=== PATIENT | male | born 1950 | race Caucasian/White ===

== ENCOUNTER 2016-12-15 08:07 | Emergency (ER) | payer MEDICARE, MEDICAID | END 2016-12-15 08:35 | disposition home or self-care (01) | LOC: NAV ERS 08:07 | DX: T83.031A Leakage of indwelling urethral catheter, initial encounter (principal); I10 Essential (primary) hypertension | CPT/HCPCS: 99283 ==

== ENCOUNTER 2017-02-01 09:09 | Emergency (ER) | payer MEDICARE, MEDICAID | END 2017-02-01 11:21 | disposition left against medical advice (07) | LOC: NAV ERS 09:09 | DX: Z46.6 Encounter for fitting and adjustment of urinary device (principal); I10 Essential (primary) hypertension; I48.91 Unspecified atrial fibrillation; Z79.899 Other long term (current) drug therapy | CPT/HCPCS: 99283 ==

== ENCOUNTER 2017-02-28 10:36 | Emergency (ER) | payer MEDICARE, MEDICAID ==
[2017-02-28 11:58] LABS: #Monocytes 0.8 thou/uL (0.11-0.59); #Neutrophils 11.1 thou/uL (1.40-6.50); %Basophils 0.4 % (0.0-1.0); %Monocytes 5.8 % (0.0-10.0); %Neutrophils 85.8 % (42.0-75.0); Mean Corpuscular HGB CONC 32.8 g/dL (32.0-36.0); Mean Corpuscular Hemoglobin 28.3 pg (27.0-31.0); Mean Corpuscular Volume 86.1 fl (80.0-94.0); Mean Platelet Volume 7.6 fL (7.4-10.4); Platelet Count 222 thou/uL (130-400); RBC Distribution Width 14.1 % (11.5-14.5); Red Blood Cell (RBC) Count 5.66 mill/uL (4.70-6.10); White Blood Cell (WBC) Count 12.9 thou/uL (4.8-10.8)
[2017-02-28] MEDS ORDERED: Acetaminophen/Codeine 30-300mg Tablet ONE (12:05)
[2017-02-28] MEDS ORDERED: Sodium Chloride 0.9% 1,000 ML ONE (12:05)
[2017-02-28 12:11] LABS: ALT (SGPT) 20 U/L (8-55); AST (SGOT) 24 U/L (5-34); Albumin 4.7 g/dL (3.4-4.8); Alkaline Phosphatase 98 U/L (40-150); Anion Gap 19 mmol/L (10-20); BUN (Urea Nitrogen) 23 mg/dL (8.4-25.7); Bilirubin, Total 0.5 mg/dL (0.2-1.2); Calc. Creatinine Clearance 0 mL/min (70-130); Calcium 11.3 mg/dL (7.8-10.44); Carbon Dioxide 18 mmol/L (23-31); Chloride 110 mmol/L (98-107); Estimated GFR-MDRD 34; Globulin 4.2 g/dL (2.4-3.5); Glucose 139 mg/dL (80-115); Potassium 4.3 mmol/L (3.5-5.1); Protein, Total 8.9 g/dL (5.8-8.1); Sodium 143 mmol/L (136-145)
[2017-02-28 12:13] LABS: CKMB 3.4 ng/mL (0-6.6); Troponin I 0.084 ng/mL (< 0.028)
[2017-02-28] MEDS ORDERED: Labetalol HCl 100 MG/20 ML VIAL ONE (12:51)
[2017-02-28 13:06] LABS: Bilirubin Negative (Negative); Blood, Urine Negative (Negative); Clarity Cloudy (Clear); Glucose, Urine (Dipstick) Negative (Negative); Leukocyte Small (Negative); Nitrite Negative (Negative); Protein, Urine (Dipstick) > or equal to 300 mg/dL (Neg-Trace); pH, Urine Greater/Equal 9.0 (5.0-9.0)
[2017-02-28 13:09] LABS: Bacteria/HPF 1+ HPF (None Seen); RBC/HPF None Seen HPF (0-3); Squamous Epithelial 0-3 HPF (0-3)
[2017-02-28 13:10] LABS: Crystals/HPF 1+ AMORPH URATES HPF (Negative); Other Microscopic Description 2+ TRIPLE PHOS CRYST
--- NOTE | 2017-02-28 13:57 | RAD ---
CHEST 1 VIEW: HISTORY: Tachycardic. COMPARISON: Chest 1 view 10/23/16. FINDINGS: Heart size is mildly prominent, although may be sequelae of technique. No focal airspace consolidat ion or pneumothorax. There appears to be some pleural thickening along the left lateral hemithorax. There are some multiple left-sided rib fractures, poorly seen. IMPRESSION: Limited due to technique, although no acute intrathoracic abnormality is appreciated. POS: [facility]
[2017-02-28] MEDS ORDERED: Nitroglycerin 2% Ointment 1 INCH/1 GM Packet ONE (14:00)
[2017-02-28] MEDS ORDERED: cefTRIAXone\\ROCEPHIN 1 GM VIAL ONE (14:00)
[2017-02-28] MEDS ORDERED: Sodium Chloride 0.9% 0 ML ONE (14:01)
[2017-02-28] MEDS ORDERED: Sodium Chloride 0.9% 100 ML ONE (14:02)
== END 2017-02-28 14:30 | disposition short-term general hospital (02) ==
LOC: NAV ERS 10:36
DX: N48.1 Balanitis (principal); N39.0 Urinary tract infection, site not specified; I13.0 Hypertensive heart and chronic kidney disease with heart failure and stage 1 through stage 4 chronic kidney disease, or unspecified chronic kidney disease; N18.9 Chronic kidney disease, unspecified; I50.9 Heart failure, unspecified; I48.91 Unspecified atrial fibrillation; Z85.46 Personal history of malignant neoplasm of prostate; Z79.899 Other long term (current) drug therapy
CPT/HCPCS: 51702; 71010; 80053; 81003; 81015; 82553; 83605; 83880; 84484; 85025; 87040; 87086; 87149; 93005; 94760; 96361; 96365; 96375; J0696; J2270; J7050

== ENCOUNTER 2017-03-29 19:53 | Emergency (ER) | payer MEDICARE, MEDICAID | END 2017-03-29 20:26 | disposition home or self-care (01) | LOC: NAV ERS 19:53 | DX: T83.038A Leakage of other urinary catheter, initial encounter (principal); I10 Essential (primary) hypertension; I49.9 Cardiac arrhythmia, unspecified; I48.91 Unspecified atrial fibrillation; Z79.899 Other long term (current) drug therapy | CPT/HCPCS: 99283 ==

== ENCOUNTER 2017-04-11 10:02 | Emergency (ER) | payer MEDICARE, MEDICAID | END 2017-04-11 10:42 | disposition home or self-care (01) | LOC: NAV ERS 10:02 | DX: T83.9XXA Unspecified complication of genitourinary prosthetic device, implant and graft, initial encounter (principal); I10 Essential (primary) hypertension; I48.91 Unspecified atrial fibrillation; C61 Malignant neoplasm of prostate; Z79.899 Other long term (current) drug therapy | CPT/HCPCS: 99283 ==

== ENCOUNTER 2017-04-29 15:24 | Emergency (ER) | payer MEDICARE, MEDICAID | END 2017-04-29 16:15 | disposition home or self-care (01) | LOC: NAV ERS 15:24 | DX: Z46.6 Encounter for fitting and adjustment of urinary device (principal) | CPT/HCPCS: 99283 ==

== ENCOUNTER 2017-05-24 08:25 | Emergency (ER) | payer MEDICARE, MEDICAID | END 2017-05-24 09:29 | disposition home or self-care (01) | LOC: NAV ERS 08:25 | DX: T83.038A Leakage of other urinary catheter, initial encounter (principal); I10 Essential (primary) hypertension; Z79.899 Other long term (current) drug therapy | CPT/HCPCS: 99283 ==

== ENCOUNTER 2017-06-05 12:14 | Emergency (ER) | payer MEDICAID, MEDICARE | END 2017-06-05 14:54 | disposition home or self-care (01) | LOC: NAV ERS 12:14 | DX: T83.098A Other mechanical complication of other urinary catheter, initial encounter (principal); I10 Essential (primary) hypertension | CPT/HCPCS: 99283 ==

== ENCOUNTER 2017-07-05 11:53 | Emergency (ER) | payer MEDICARE, MEDICAID | END 2017-07-05 13:12 | disposition home or self-care (01) | LOC: NAV ERS 11:53 | DX: T83.091A Other mechanical complication of indwelling urethral catheter, initial encounter (principal); I10 Essential (primary) hypertension; N40.0 Benign prostatic hyperplasia without lower urinary tract symptoms; Z79.899 Other long term (current) drug therapy | CPT/HCPCS: 51702 ==

== ENCOUNTER 2017-07-26 14:06 | Emergency (ER) | payer MEDICAID, MEDICARE ==
[2017-07-26] MEDS ORDERED: Amlodipine 10 MG TAB ONE (15:25)
[2017-07-26] MEDS ORDERED: cloNIDine 0.1 MG TAB ONE (16:44)
== END 2017-07-26 17:44 | disposition home or self-care (01) ==
LOC: NAV ERS 14:06
DX: T83.018A Breakdown (mechanical) of other urinary catheter, initial encounter (principal); I10 Essential (primary) hypertension; N40.0 Benign prostatic hyperplasia without lower urinary tract symptoms; Z79.899 Other long term (current) drug therapy
CPT/HCPCS: 99283

== ENCOUNTER 2017-10-08 15:56 | Emergency (ER) | payer MEDICARE ==
[2017-10-08] MEDS ORDERED: cloNIDine 0.1 MG TAB ONE ×2 (17:33→18:16)
[2017-10-08] MEDS ORDERED: Amlodipine 10 MG TAB ONE (17:33)
== END 2017-10-08 19:00 | disposition home or self-care (01) ==
LOC: NAV ERS 15:56
DX: I10 Essential (primary) hypertension (principal); Z79.899 Other long term (current) drug therapy
CPT/HCPCS: 51703

== ENCOUNTER 2017-11-26 09:26 | Emergency (ER) | payer MEDICARE | END 2017-11-26 10:01 | disposition home or self-care (01) | LOC: NAV ERS 09:26 | DX: T83.098A Other mechanical complication of other urinary catheter, initial encounter (principal); I10 Essential (primary) hypertension | CPT/HCPCS: 99283 ==

== ENCOUNTER 2017-12-06 15:23 | Emergency (ER) | payer MEDICARE ==
[2017-12-06] MEDS ORDERED: cloNIDine 0.1 MG TAB ONE (16:01)
[2017-12-06] MEDS ORDERED: Amlodipine 10 MG TAB ONE (16:01)
== END 2017-12-06 16:20 | disposition home or self-care (01) ==
LOC: NAV ERS 15:23
DX: R33.9 Retention of urine, unspecified (principal); I10 Essential (primary) hypertension; N40.0 Benign prostatic hyperplasia without lower urinary tract symptoms; Z85.038 Personal history of other malignant neoplasm of large intestine
CPT/HCPCS: 99283

== ENCOUNTER 2017-12-26 07:21 | Emergency (ER) | payer MEDICARE ==
[2017-12-26] MEDS ORDERED: cloNIDine 0.2 MG TAB ONE (07:41)
== END 2017-12-26 08:34 | disposition home or self-care (01) ==
LOC: NAV ERS 07:21
DX: R33.9 Retention of urine, unspecified (principal); I10 Essential (primary) hypertension; N40.0 Benign prostatic hyperplasia without lower urinary tract symptoms; Z85.038 Personal history of other malignant neoplasm of large intestine; Z79.899 Other long term (current) drug therapy
CPT/HCPCS: 99283

== ENCOUNTER 2018-01-31 15:31 | Emergency (ER) | payer MEDICARE ==
[2018-01-31 16:25] LABS: #Lymphocytes 0.4 thou/uL (1.20-3.40); #Monocytes 0.5 thou/uL (0.11-0.59); #Neutrophils 8.9 thou/uL (1.40-6.50); %Basophils 0.5 % (0.0-1.0); %Eosinophils 0.1 % (0.0-10.0); %Lymphocytes 3.6 % (21.0-51.0); %Neutrophils 90.8 % (42.0-75.0); Hemoglobin 14.8 g/dL (14.0-18.0); Mean Corpuscular HGB CONC 31.3 g/dL (32.0-36.0); Mean Platelet Volume 8.9 fL (7.4-10.4); Platelet Count 177 thou/uL (130-400); RBC Distribution Width 14.6 % (11.5-14.5); White Blood Cell (WBC) Count 9.8 thou/uL (4.8-10.8)
[2018-01-31 16:38] LABS: Anion Gap 14 mmol/L (10-20); BUN (Urea Nitrogen) 16 mg/dL (8.4-25.7); Calc. Creatinine Clearance 0 mL/min (70-130); Calcium 9.8 mg/dL (7.8-10.44); Carbon Dioxide 18 mmol/L (23-31); Chloride 107 mmol/L (98-107); Estimated GFR-MDRD 43; Glucose 120 mg/dL (80-115); Potassium 3.2 mmol/L (3.5-5.1); Sodium 136 mmol/L (136-145)
[2018-01-31] MEDS ORDERED: Sodium Chloride 0.9% 0 ML ONE (16:54)
[2018-01-31 17:05] LABS: Bilirubin Negative (Negative); Blood, Urine Large (Negative); Glucose, Urine (Dipstick) Negative (Negative); Leukocyte Moderate (Negative); Nitrite Positive (Negative); Protein, Urine (Dipstick) > or equal to 300 mg/dL (Neg-Trace); Specific Gravity, Urine 1.025 (1.005-1.030)
[2018-01-31 17:07] LABS: Clarity Cloudy (Clear)
[2018-01-31 17:13] LABS: Bacteria/HPF 4+ HPF (None Seen); RBC/HPF GREATER THAN 50-TNTC HPF (0-3); Squamous Epithelial 0-3 HPF (0-3)
[2018-01-31] MEDS ORDERED: Lidocaine 1% 20 ML MDV ONE (17:33)
[2018-01-31] MEDS ORDERED: cefTRIAXone\\ROCEPHIN 1 GM VIAL ONE (17:33)
== END 2018-01-31 19:00 | disposition home or self-care (01) ==
LOC: NAV ERS 15:31
DX: S37.33XA Laceration of urethra, initial encounter (principal); B37.42 Candidal balanitis; N39.0 Urinary tract infection, site not specified; I10 Essential (primary) hypertension; Z79.899 Other long term (current) drug therapy; X58.XXXA Exposure to other specified factors, initial encounter
CPT/HCPCS: 51702; 80048; 81003; 81015; 85025; 87070; 87077; 87086; 87186; 87205; 96372; J0696; J2001; J7050

== ENCOUNTER 2018-03-11 10:40 | Emergency (ER) | payer MEDICARE | END 2018-03-11 11:36 | disposition home or self-care (01) | LOC: NAV ERS 10:40 | DX: T83.038A Leakage of other urinary catheter, initial encounter (principal); I10 Essential (primary) hypertension; Z79.899 Other long term (current) drug therapy | CPT/HCPCS: 99283 ==

== ENCOUNTER 2018-04-10 10:44 | Emergency (ER) | payer MEDICARE ==
[2018-04-10] MEDS ORDERED: cloNIDine 0.2 MG TAB ONE (11:59)
[2018-04-10 13:50] LABS: AST (SGOT) 18 U/L (5-34); Albumin 4.1 g/dL (3.4-4.8); Alkaline Phosphatase 101 U/L (40-150); Anion Gap 16 mmol/L (10-20); BUN (Urea Nitrogen) 17 mg/dL (8.4-25.7); Bilirubin, Total 0.8 mg/dL (0.2-1.2); CKMB 3.3 ng/mL (0-6.6); Calc. Creatinine Clearance 0 mL/min (70-130); Carbon Dioxide 19 mmol/L (23-31); Chloride 108 mmol/L (98-107); Estimated GFR-MDRD 45; Globulin 2.9 g/dL (2.4-3.5); Glucose 115 mg/dL (80-115); Potassium 4.2 mmol/L (3.5-5.1); Sodium 139 mmol/L (136-145); Troponin I 0.032 ng/mL (< 0.028)
[2018-04-10 13:51] LABS: ALT (SGPT) 11 U/L (8-55)
[2018-04-10 13:56] LABS: Bilirubin Negative (Negative); Blood, Urine Large (Negative); Glucose, Urine (Dipstick) Negative (Negative); Leukocyte Trace (Negative); Nitrite Negative (Negative); Protein, Urine (Dipstick) > or equal to 300 mg/dL (Neg-Trace); Specific Gravity, Urine 1.025 (1.005-1.030); Urobilinogen 0.2 mg/dL (0.2-1.0); pH, Urine 6.5 (5.0-9.0)
[2018-04-10 13:58] LABS: #Basophils 0.1 thou/uL (0.0-0.2); #Lymphocytes 0.5 thou/uL (1.20-3.40); #Monocytes 0.8 thou/uL (0.11-0.59); #Neutrophils 11.8 thou/uL (1.40-6.50); %Basophils 0.5 % (0.0-1.0); %Lymphocytes 3.7 % (21.0-51.0); %Monocytes 5.9 % (0.0-10.0); Mean Corpuscular HGB CONC 31.2 g/dL (32.0-36.0); Mean Corpuscular Hemoglobin 26.9 pg (27.0-31.0); Mean Corpuscular Volume 86.3 fL (78.0-98.0); Mean Platelet Volume 9.1 fL (7.4-10.4); Platelet Count 198 thou/uL (130-400); RBC Distribution Width 14.3 % (11.5-14.5); Red Blood Cell (RBC) Count 6.31 mill/uL (4.70-6.10); White Blood Cell (WBC) Count 13.1 thou/uL (4.8-10.8)
[2018-04-10 14:00] LABS: Clarity SL HAZY (Clear)
[2018-04-10 15:03] LABS: Bacteria/HPF 2+ HPF (None Seen); RBC/HPF 21-50 HPF (0-3); Squamous Epithelial 0-3 HPF (0-3)
== END 2018-04-10 15:36 | disposition home or self-care (01) ==
LOC: NAV ERS 10:44
DX: T83.091A Other mechanical complication of indwelling urethral catheter, initial encounter (principal); I10 Essential (primary) hypertension
CPT/HCPCS: 51703; 80053; 81001; 82553; 83880; 84484; 85025; 93005; 94760

== ENCOUNTER 2018-05-10 07:55 | Emergency (ER) | payer MEDICARE | END 2018-05-10 08:40 | disposition home or self-care (01) | LOC: NAV ERS 07:55 | DX: T83.031A Leakage of indwelling urethral catheter, initial encounter (principal); I10 Essential (primary) hypertension | CPT/HCPCS: 99283 ==

== ENCOUNTER 2018-06-08 07:53 | Emergency (ER) | payer MEDICARE | END 2018-06-08 08:45 | disposition home or self-care (01) | LOC: NAV ERS 07:53 | DX: T83.031A Leakage of indwelling urethral catheter, initial encounter (principal); I10 Essential (primary) hypertension; Z79.899 Other long term (current) drug therapy; Z79.891 Long term (current) use of opiate analgesic | CPT/HCPCS: 99283 ==

== ENCOUNTER 2018-07-20 07:49 | Emergency (ER) | payer MEDICARE ==
[2018-07-20 08:33] LABS: #Monocytes 0.5 thou/uL (0.11-0.59); #Neutrophils 3.7 thou/uL (1.40-6.50); %Basophils 0.9 % (0.0-1.0); %Eosinophils 0.7 % (0.0-10.0); %Lymphocytes 19.2 % (21.0-51.0); %Monocytes 9.7 % (0.0-10.0); %Neutrophils 69.6 % (42.0-75.0); Hemoglobin 14.7 g/dL (14.0-18.0); Mean Corpuscular HGB CONC 30.5 g/dL (32.0-36.0); Mean Corpuscular Hemoglobin 26.6 pg (27.0-31.0); Mean Corpuscular Volume 87.2 fL (78.0-98.0); Mean Platelet Volume 10.1 fL (7.4-10.4); Platelet Count 193 thou/uL (130-400); RBC Distribution Width 14.6 % (11.5-14.5); Red Blood Cell (RBC) Count 5.54 mill/uL (4.70-6.10); White Blood Cell (WBC) Count 5.3 thou/uL (4.8-10.8)
[2018-07-20 08:47] LABS: ALT (SGPT) 20 U/L (8-55); AST (SGOT) 20 U/L (5-34); Albumin 3.7 g/dL (3.4-4.8); Alkaline Phosphatase 83 U/L (40-150); Anion Gap 14 mmol/L (10-20); BUN (Urea Nitrogen) 23 mg/dL (8.4-25.7); Bilirubin, Total 0.6 mg/dL (0.2-1.2); Calc. Creatinine Clearance 0 mL/min (70-130); Calcium 10.1 mg/dL (7.8-10.44); Carbon Dioxide 22 mmol/L (23-31); Chloride 109 mmol/L (98-107); Estimated GFR-MDRD 38; Glucose 98 mg/dL (80-115); Lipase 66 U/L (8-78); Potassium 4.4 mmol/L (3.5-5.1); Protein, Total 6.7 g/dL (5.8-8.1); Sodium 141 mmol/L (136-145)
--- NOTE | 2018-07-20 10:28 | CT ---
NONCONTRAST ENHANCED CT IMAGES OF THE ABDOMEN AND PELVIS: History: Pain. By history there is indication that the patient has had a previous CT done at [facility]. I checked the PACS system and there is no recent CT of the abdomen/pelvis on this patient. Comparison: [facility] CT, 10-23-16. FINDINGS: Noncontrast enhanced CT of the abdomen and pelvis demonstrate development of small bilateral pleural effusions. Old healed left rib fractures seen. Calcification of the coronary artery seen. The liver and spleen are unremarkable. There is some distal esophageal thickening seen. The pancreas is unremarkable. There is some fat stranding surrounding both kidneys. There is an area of calcificat ion in the posterolateral aspect of the left urinary bladder. This was not present on the previous ex am and may represent a bladder calculus or recently passes left ureteral calculus. This is moderate i n size having a maximum diameter of approximately 10 mm. No definite evidence of hydroureteronephrosi s is seen. Indwelling Boyce catheter is in place. Surgical clips seen in the ascending portion of the colon. Small umbilical hernia is present. A small left inguinal hernia is present with fat within the inguinal canal. IMPRESSION: 1. Newly developed left urinary bladder calcification. 2. Development of bilateral pleural effusions. POS: [facility]
== END 2018-07-20 09:37 | disposition home or self-care (01) ==
LOC: NAV ERS 07:49
DX: R10.9 Unspecified abdominal pain (principal); I10 Essential (primary) hypertension; Z79.899 Other long term (current) drug therapy
CPT/HCPCS: 74176; 80053; 83605; 83690; 85025

== ENCOUNTER 2019-03-25 15:38 | Emergency (ER) | payer MEDICARE ==
[2019-03-25 16:33] LABS: #Lymphocytes 0.8 thou/uL (1.20-3.40); #Monocytes 0.9 thou/uL (0.11-0.59); #Neutrophils 6.6 thou/uL (1.40-6.50); %Basophils 0.4 % (0.0-1.0); %Lymphocytes 9.3 % (21.0-51.0); %Monocytes 11.1 % (0.0-10.0); %Neutrophils 79.1 % (42.0-75.0); Hemoglobin 13.2 g/dL (14.0-18.0); Mean Corpuscular HGB CONC 29.7 g/dL (32.0-36.0); Mean Corpuscular Hemoglobin 24.4 pg (27.0-31.0); Mean Corpuscular Volume 82.1 fL (78.0-98.0); Mean Platelet Volume 8.5 fL (7.4-10.4); Platelet Count 205 thou/uL (130-400); RBC Distribution Width 16.5 % (11.5-14.5); White Blood Cell (WBC) Count 8.3 thou/uL (4.8-10.8)
[2019-03-25 16:40] LABS: Lactic Acid 1.9 mmol/L (0.5-2.2)
[2019-03-25] MEDS ORDERED: Sodium Chloride 0.9% 1,000 ML ONE (16:40)
[2019-03-25] MEDS ORDERED: Sodium Chloride 0.9% 100 ML ONE (16:41)
[2019-03-25] MEDS ORDERED: Piperacillin/Tazobactam 3.375 GM VIAL ONE (16:41)
[2019-03-25 16:44] LABS: ALT (SGPT) 29 U/L (8-55); AST (SGOT) 33 U/L (5-34); Albumin 3.8 g/dL (3.4-4.8); Alkaline Phosphatase 196 U/L (40-110); Anion Gap 19 mmol/L (10-20); BUN (Urea Nitrogen) 35 mg/dL (8.4-25.7); Calc. Creatinine Clearance 0 mL/min (70-130); Calcium 9.8 mg/dL (7.8-10.44); Carbon Dioxide 23 mmol/L (23-31); Chloride 102 mmol/L (98-107); Estimated GFR-MDRD 30; Globulin 3.2 g/dL (2.4-3.5); Glucose 107 mg/dL (80-115); Potassium 4.9 mmol/L (3.5-5.1); Sodium 139 mmol/L (136-145)
--- NOTE | 2019-03-25 16:47 | RAD ---
EXAM: CHEST ONE VIEW HISTORY: Hypoxia, cough COMPARISON: 02/28/2017 FINDINGS: There has been interval placement of a triple lead left subclavian AICD device when compared to prior exam. The cardiac silhouette is magnified by projection and shallow depth of inspiration but does appear enlarged. There is accentuation of the bronchovascular markings due to the shallow depth inspi ration. No consolidation or pleural fluid is evident. Remote left-sided rib fractures are again seen. Surgical clips overlie the left axilla. IMPRESSION: 1. No acute cardiopulmonary process. 2. Cardiomegaly.
[2019-03-25] MEDS ORDERED: methylPREDNISolone Sod Succ/PF 125 MG/2 ML VIAL ONE (17:02)
[2019-03-25 17:04] LABS: CKMB 0.8 ng/mL (0-6.6)
[2019-03-25 17:09] LABS: Bilirubin Negative (Negative); Blood, Urine Large (Negative); Glucose, Urine (Dipstick) Negative (Negative); Leukocyte Moderate (Negative); Nitrite Negative (Negative); Protein, Urine (Dipstick) > or equal to 300 mg/dL (Neg-Trace)
[2019-03-25 17:20] LABS: Bacteria/HPF 1+ HPF (None Seen); Clarity Hazy (Clear); Mucous/LPF 1+ LPF (<2+); Squamous Epithelial 0-3 HPF (0-3)
[2019-03-25] MEDS ORDERED: Furosemide 40 MG/4 ML VIAL ONE (17:27)
[2019-03-25] MEDS ORDERED: Aspirin Chewable 81 MG TAB ONE (17:41)
== END 2019-03-25 18:03 | disposition short-term general hospital (02) ==
LOC: NAV ERS 15:38
DX: J96.01 Acute respiratory failure with hypoxia (principal); I13.2 Hypertensive heart and chronic kidney disease with heart failure and with stage 5 chronic kidney disease, or end stage renal disease; I50.9 Heart failure, unspecified; N17.9 Acute kidney failure, unspecified; N18.3 Chronic kidney disease, stage 3 (moderate); J44.1 Chronic obstructive pulmonary disease with (acute) exacerbation; I48.91 Unspecified atrial fibrillation; Z85.46 Personal history of malignant neoplasm of prostate; Z79.82 Long term (current) use of aspirin; Z79.899 Other long term (current) drug therapy; Z79.01 Long term (current) use of anticoagulants
CPT/HCPCS: 71045; 80053; 81003; 81015; 82553; 83605; 83880; 84484; 85025; 87040; 87086; 87186; 87804; 93005; 94640; 94660; 94760; 96365; 96375; J1940; J2543; J2930; J3490; J7050; J7620

== ENCOUNTER 2019-04-09 12:15 | Outpatient (CLI) | payer OTHER ==
[2019-04-09 12:49] LABS: #Basophils 0.1 thou/uL (0.0-0.2); #Eosinphils 0.4 thou/uL (0.0-0.7); #Lymphocytes 1.6 thou/uL (1.20-3.40); #Monocytes 0.6 thou/uL (0.11-0.59); %Basophils 0.8 % (0.0-1.0); %Eosinophils 4.7 % (0.0-10.0); %Lymphocytes 20.4 % (21.0-51.0); %Monocytes 7.6 % (0.0-10.0); %Neutrophils 66.5 % (42.0-75.0); Hemoglobin 13.5 g/dL (14.0-18.0); Mean Corpuscular HGB CONC 29.2 g/dL (32.0-36.0); Mean Corpuscular Hemoglobin 24.3 pg (27.0-31.0); Mean Corpuscular Volume 83.1 fL (78.0-98.0); Mean Platelet Volume 8.2 fL (7.4-10.4); Platelet Count 231 thou/uL (130-400); RBC Distribution Width 16.6 % (11.5-14.5); Red Blood Cell (RBC) Count 5.58 mill/uL (4.70-6.10); White Blood Cell (WBC) Count 7.6 thou/uL (4.8-10.8)
[2019-04-09 12:56] LABS: Anion Gap 17 mmol/L (10-20); BUN (Urea Nitrogen) 29 mg/dL (8.4-25.7); Calc. Creatinine Clearance 0 mL/min (70-130); Calcium 11.1 mg/dL (7.8-10.44); Carbon Dioxide 26 mmol/L (23-31); Chloride 103 mmol/L (98-107); Estimated GFR-MDRD 41; Glucose 88 mg/dL (80-115); Sodium 142 mmol/L (136-145)
== END 2019-04-09 12:16 | disposition home or self-care (01) ==
LOC: NAV LAB 12:15
PROVIDERS: ATTEND Internal Medicine
DX: I11.0 Hypertensive heart disease with heart failure (principal); I50.22 Chronic systolic (congestive) heart failure; J96.11 Chronic respiratory failure with hypoxia; J44.9 Chronic obstructive pulmonary disease, unspecified; C61 Malignant neoplasm of prostate; Z95.0 Presence of cardiac pacemaker
CPT/HCPCS: 80048; 83880; 85025

== ENCOUNTER 2022-05-24 03:18 | Emergency (ER) | payer MEDICARE, OTHER ==
[2022-05-24 05:12] LABS: INR-International Normal Ratio 1.1; PTT 34.5 sec (22.9-36.1)
[2022-05-24 05:21] LABS: #Neutrophils 2.8 thou/uL (1.40-6.50); %Basophils 0.8 % (0.0-1.0); %Eosinophils 2.2 % (0.0-10.0); %Monocytes 16.2 % (0.0-10.0); %Neutrophils 55.8 % (42.0-75.0); ALT (SGPT) 19 U/L (8-55); AST (SGOT) 27 U/L (5-34); Albumin 3.8 g/dL (3.4-4.8); Alkaline Phosphatase 109 U/L (40-110); Anion Gap 14 mmol/L (10-20); BUN (Urea Nitrogen) 30 mg/dL (8.4-25.7); Bilirubin, Total 0.2 mg/dL (0.2-1.2); Calc. Creatinine Clearance 0 mL/min (70-130); Calcium 11.1 mg/dL (7.8-10.44); Carbon Dioxide 24 mmol/L (23-31); Chloride 104 mmol/L (98-107); Estimated GFR 32; Globulin 3.8 g/dL (2.4-3.5); Glucose 150 mg/dL (83-110); Hemoglobin 11.3 g/dL (14.0-18.0); Manual Diff?? NO; Mean Corpuscular HGB CONC 31.2 g/dL (32.0-36.0); Mean Corpuscular Hemoglobin 25.8 pg (27.0-31.0); Mean Corpuscular Volume 82.4 fl (78.0-98.0); Mean Platelet Volume 8.6 fL (7.4-10.4); Platelet Count 209 10x3/uL (130-400); Potassium 4.8 mmol/L (3.5-5.1); Protein, Total 7.6 g/dL (5.8-8.1); Red Blood Cell (RBC) Count 4.39 mill/uL (4.70-6.10); Sodium 137 mmol/L (136-145); White Blood Cell (WBC) Count 5.1 10x3/uL (4.8-10.8)
[2022-05-24 05:22] LABS: #Eosinphils 0.1 thou/uL (0.0-0.7); #Lymphocytes 1.3 thou/uL (1.20-3.40); #Monocytes 0.8 thou/uL (0.11-0.59)
[2022-05-24 05:24] LABS: Hypochromia SLIGHT = 6-15 cells (100X) (0-5/hpf); Microcytosis MODERATE=15-30 cells (100X) (0-5/hpf); Platelet Morphology Comment Appears Adequate
== END 2022-05-24 06:00 | disposition short-term general hospital (02) ==
LOC: NAV ERS 03:18
DX: R31.0 Gross hematuria (principal); T83.018A Breakdown (mechanical) of other urinary catheter, initial encounter; I13.0 Hypertensive heart and chronic kidney disease with heart failure and stage 1 through stage 4 chronic kidney disease, or unspecified chronic kidney disease; N18.30 Chronic kidney disease, stage 3 unspecified; Z79.899 Other long term (current) drug therapy; Z79.01 Long term (current) use of anticoagulants
CPT/HCPCS: 80053; 85025; 85610; 85730; 99284

== ENCOUNTER 2023-08-20 11:01 | Emergency (ER) | payer MEDICARE, MEDICAID ==
[2023-08-20] MEDS ORDERED: Lidocaine 1% w/Epinephrine 1:100K 20 ML VIAL ONE (12:02)
[2023-08-20] MEDS ORDERED: Boostrix 0.5 ML (Tdap) VIAL (>/=7 yrs of age) ONE (12:02)
[2023-08-20 13:03] LABS: #Eosinphils 0.1 thou/uL (0.0-0.7); #Lymphocytes 1.1 thou/uL (1.20-3.40); #Monocytes 0.6 thou/uL (0.11-0.59); %Basophils 0.6 % (0.0-1.0); %Eosinophils 1.8 % (0.0-10.0); %Lymphocytes 22.8 % (21.0-51.0); %Monocytes 12.3 % (0.0-10.0); %Neutrophils 62.5 % (42.0-75.0); Hematocrit 38.2 % (42.0-52.0); Mean Corpuscular HGB CONC 31.5 g/dL (32.0-36.0); Mean Corpuscular Hemoglobin 26.9 pg (27.0-31.0); Mean Corpuscular Volume 85.4 fl (78.0-98.0); Mean Platelet Volume 8.9 fL (7.4-10.4); Platelet Count 152 10x3/uL (130-400); RBC Distribution Width 14.3 % (11.5-14.5); Red Blood Cell (RBC) Count 4.47 mill/uL (4.70-6.10); White Blood Cell (WBC) Count 4.8 10x3/uL (4.8-10.8)
[2023-08-20 13:14] LABS: Bilirubin Negative (Negative); Blood, Urine Large (Negative); Clarity Cloudy (Clear); Glucose, Urine (Dipstick) Negative (Negative); Ketone, Urine Negative (Negative); Leukocyte Trace (Negative); Nitrite Negative (Negative); Protein, Urine (Dipstick) 100 mg/dL (Neg-Trace); Urobilinogen 0.2 mg/dL (Less than 2)
[2023-08-20 13:15] LABS: INR-International Normal Ratio 1.2; PTT 30.5 sec (22.9-36.1); Prothrombin Time 15.8 sec (12.0-14.7)
[2023-08-20 13:22] LABS: CAUTI Indications for Culture Alt mental st,lethar; RBC/HPF Greater than 50 HPF (0-3)
[2023-08-20 13:23] LABS: Bacteria/HPF 1+ HPF (None Seen)
[2023-08-20 13:23] LABS: ALT (SGPT) 15 U/L (8-55); AST (SGOT) 20 U/L (5-34); Albumin 3.9 g/dL (3.4-4.8); Alkaline Phosphatase 91 U/L (40-110); Anion Gap 13 mmol/L (10-20); BUN (Urea Nitrogen) 36 mg/dL (8.4-25.7); Bilirubin, Total 0.3 mg/dL (0.2-1.2); Calc. Creatinine Clearance 0 mL/min (70-130); Calcium 11.9 mg/dL (7.8-10.44); Carbon Dioxide 25 mmol/L (23-31); Chloride 107 mmol/L (98-107); Estimated GFR 28; Globulin 4.1 g/dL (2.4-3.5); Glucose 124 mg/dL (83-110); Potassium 4.4 mmol/L (3.5-5.1); Sodium 141 mmol/L (136-145); Troponin I 0.025 ng/mL (< 0.028)
[2023-08-20 13:24] LABS: Urine Culture Reflex No No
[2023-08-20] MEDS ORDERED: hydrALAZINE 20 MG/ML VIAL ONE (13:31)
[2023-08-20] MEDS ORDERED: Sodium Chloride 0.9% 100 ML ONE (14:13)
[2023-08-20] MEDS ORDERED: cefTRIAXone (ROCEPHIN) 1 GM VIAL ONE (14:13)
== END 2023-08-20 20:40 | disposition short-term general hospital (02) ==
LOC: NAV ERS 11:01
DX: S01.81XA Laceration without foreign body of other part of head, initial encounter (principal); R55 Syncope and collapse; N39.0 Urinary tract infection, site not specified; I13.10 Hypertensive heart and chronic kidney disease without heart failure, with stage 1 through stage 4 chronic kidney disease, or unspecified chronic kidney disease; I50.9 Heart failure, unspecified; N18.30 Chronic kidney disease, stage 3 unspecified; J44.9 Chronic obstructive pulmonary disease, unspecified; E03.9 Hypothyroidism, unspecified; E78.00 Pure hypercholesterolemia, unspecified; Z79.899 Other long term (current) drug therapy; W01.10XA Fall on same level from slipping, tripping and stumbling with subsequent striking against unspecified object, initial encounter
CPT/HCPCS: 70450; 72125; 80053; 81001; 84484; 85025; 85610; 85730; 90715; 93005; 94760; G0390; J0360; 90471; 96374; 96375; 96376; J0696; J3490